=== PATIENT | female | born 1990 | race Caucasian/White ===

== ENCOUNTER 2021-09-25 09:04 | Emergency (ER) | payer OTHER | END 2021-09-25 11:00 | disposition home or self-care (01) | LOC: JVIRT 09:04 | DX: Z20.822 Contact with and (suspected) exposure to COVID-19 (principal) | CPT/HCPCS: C9803; Q3014-GT; U0003; U0005 ==

== ENCOUNTER 2023-10-21 10:58 | Emergency (ER) | payer OTHER ==
[2023-10-21 11:06] VITALS: BP 128/76; PULSE 85; RESP 18; TEMP 99.5; BMI 28.1
== END 2023-10-21 12:55 | disposition home or self-care (01) ==
LOC: JERFT 10:58
DX: J02.9 Acute pharyngitis, unspecified (principal); R09.81 Nasal congestion; J06.9 Acute upper respiratory infection, unspecified; Z20.822 Contact with and (suspected) exposure to COVID-19
CPT/HCPCS: 0241U-QW; 99283-25